=== PATIENT | male | born 1950 | race Caucasian/White ===

== ENCOUNTER 2019-10-01 09:18 | Emergency (ER) | payer MEDICARE, OTHER ==
[~2019-10-01] VITALS: Ht 177.8 cm; Wt 90.9 kg
--- NOTE | 2019-10-01 09:35 | NUR ---
TEO JACKSON AT BEDSIDE.
--- NOTE | 2019-10-01 09:42 | NUR ---
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
[2019-10-01 09:52] LABS: EOSINOPHILS # (AUTO) 0.1 X10'3 (0-0.9); HEMOGLOBIN 14.8 g/dl (14.0-17.9); MONOCYTES # (AUTO) 0.7 X10'3 (0-0.9); RED CELL DISTRIBUTION WIDTH 12.7 % (11.5-14.5); WHITE BLOOD COUNT 6.6 X10'3 (4.5-11.0)
[2019-10-01 09:54] LABS: BASOPHILS % (AUTO) 0.6 % (0-1); EOSINOPHILS % (AUTO) 1.3 % (0-6); HEMATOCRIT 44.1 % (42.0-52.0); LYMPHOCYTES # (AUTO) 1.7 X10'3 (1.1-4.8); LYMPHOCYTES % (AUTO) 25.6 % (21-51); MEAN CORPUSCULAR HEMOGLOBIN 31.4 PG (27.0-31.0); MEAN CORPUSCULAR HGB CONC 33.5 g/dL (33.0-36.5); MEAN CORPUSCULAR VOLUME 93.8 FL (78-98); MEAN PLATELET VOLUME 7.9 FL (7.4-10.4); MONOCYTES % (AUTO) 10.7 % (2-12); NEUTROPHILS # (AUTO) 4.1 X10'3 (1.8-7.7); NEUTROPHILS % (AUTO) 61.8 % (42-75); PLATELET COUNT 235 X10'3 (140-440)
[2019-10-01 10:14] LABS: ALANINE AMINOTRANSFERASE 46 U/L (12-78); ALBUMIN 3.9 G/DL (3.4-5.0); ALBUMIN/GLOBULIN RATIO 1.1 (1.1-1.5); ALKALINE PHOSPHATASE 82 IU/L (46-116); ANION GAP 5 (8-16); ASPARTATE AMINO TRANSFERASE 36 U/L (10-37); BILIRUBIN,TOTAL 0.6 MG/DL (0.1-1.0); BLOOD UREA NITROGEN 20 MG/DL (7-18); BUN/CREATININE RATIO 25.6 (5.4-32.0); CALCIUM 8.9 MG/DL (8.5-10.1); CHLORIDE 102 MMOL/L (99-107); CREATININE 0.78 MG/DL (0.60-1.10); GLUCOSE 106 MG/DL (70-104); POTASSIUM 3.8 MMOL/L (3.5-5.1); SODIUM 135 MMOL/L (135-145); TOTAL CARBON DIOXIDE 27.9 MMOL/L (24-32); TOTAL PROTEIN 7.6 G/DL (6.4-8.2); eGFR > 90 ML/MIN
--- NOTE | 2019-10-01 11:13 | NUR ---
FELIZ AT BEDSIDE.
[2019-10-01] MEDS ORDERED: LORazepam 2 mg/ml vial IV ONE (11:15)
--- NOTE | 2019-10-01 11:16 | NUR ---
verbal order received from Lily JACKSON to administer ativan 0.5mg iv x1.Order noted and carried out.
--- NOTE | 2019-10-01 11:30 | NUR ---
patient does not have family to transport him home,ativan cancelled by MD.
--- NOTE | 2019-10-01 12:11 | NUR ---
ultrasound at bedside
[2019-10-01 12:59] VITALS: BP 110/62
== END 2019-10-01 12:58 | disposition home or self-care (01) ==
LOC: ER 09:18
DX: R06.02 Shortness of breath (principal); I50.9 Heart failure, unspecified; I11.0 Hypertensive heart disease with heart failure
CPT/HCPCS: 36415; 71045; 80053; 84484; 85025; 93005; 99285

== ENCOUNTER 2022-03-31 11:51 | Observation (INO) | payer MEDICARE, OTHER ==
[~2022-03-31] VITALS: Ht 177.8 cm; Wt 98.7 kg
[2022-03-31] VITALS (9 sets, daily range): BP systolic 120–161; BP diastolic 60–94
[2022-03-31] MEDS ORDERED: cefazolin/dext.iso 2gm/100ml 100 ML IV ONE (12:20)
[2022-03-31] MEDS ORDERED: normal saline 1000ml 1,000 ML IV SCH (12:20)
[2022-03-31 12:55] LABS: BASOPHILS % (AUTO) 0.6 % (0-1); EOSINOPHILS # (AUTO) 0.1 X10'3 (0-0.9); EOSINOPHILS % (AUTO) 1.2 % (0-6); HEMATOCRIT 42.4 % (42.0-52.0); HEMOGLOBIN 14.2 g/dl (14.0-17.9); LYMPHOCYTES % (AUTO) 27.3 % (21-51); MEAN CORPUSCULAR HEMOGLOBIN 31.2 PG (27.0-31.0); MEAN CORPUSCULAR HGB CONC 33.6 g/dL (33.0-36.5); MEAN CORPUSCULAR VOLUME 92.9 FL (78-98); MEAN PLATELET VOLUME 7.7 FL (7.4-10.4); MONOCYTES # (AUTO) 0.7 X10'3 (0-0.9); MONOCYTES % (AUTO) 10.1 % (2-12); NEUTROPHILS # (AUTO) 4.4 X10'3 (1.8-7.7); NEUTROPHILS % (AUTO) 60.8 % (42-75); PLATELET COUNT 213 X10'3 (140-440); RED BLOOD COUNT 4.57 X10'6 (4.70-6.10); RED CELL DISTRIBUTION WIDTH 12.7 % (11.5-14.5); WHITE BLOOD COUNT 7.2 X10'3 (4.5-11.0)
[2022-03-31 13:06] LABS: ALBUMIN 3.8 G/DL (3.4-5.0); ANION GAP 7 (8-16); BLOOD UREA NITROGEN 16 MG/DL (7-18); BUN/CREATININE RATIO 23.2 (5.4-32.0); CHLORIDE 103 MMOL/L (99-107); CREATININE 0.69 MG/DL (0.60-1.10); GLUCOSE 95 MG/DL (70-104); MAGNESIUM 1.9 MG/DL (1.5-2.4); POTASSIUM 3.4 MMOL/L (3.5-5.1); SODIUM 137 MMOL/L (135-145); TOTAL CARBON DIOXIDE 26.9 MMOL/L (24-32); eGFR > 90 ML/MIN
[2022-03-31] MEDS ORDERED: ROSU10TA28 PO (13:10)
[2022-03-31] MEDS ORDERED: CHOL500049 PO (13:10)
[2022-03-31] MEDS ORDERED: CARV6.2553 PO (13:10)
[2022-03-31] MEDS ORDERED: TEMA30CA PO (13:10)
[2022-03-31] MEDS ORDERED: AMLO10TA13 PO (13:10)
[2022-03-31] MEDS ORDERED: PANT20TA18 PO (13:10)
[2022-03-31] MEDS ORDERED: LISI40TA13 PO (13:10)
[2022-03-31] MEDS ORDERED: CHLO25TA10 PO (13:10)
[2022-03-31] MEDS ORDERED: CETI-194 PO (13:10)
[2022-03-31] MEDS ORDERED: fentaNYL/PF 50MCG/1 ML 2ML syringe ONE ×2 (13:41→14:49)
[2022-03-31] MEDS ORDERED: LIDOCAINE 1%/EPI 1:100,000 inj. 10 ML multi-dose vial ONE ×2 (13:41→14:30)
[2022-03-31] MEDS ORDERED: midazolam 1 mg/ML 2ml injection ONE ×2 (13:41→14:49)
[2022-03-31] MEDS ORDERED: ceFAZolin 1000mg inj ONE (13:41)
[2022-03-31] MEDS ORDERED: HYDROcodone/acetaminophen 10/325mg tab PO PRN (16:05)
[2022-03-31] MEDS ORDERED: HYDROcodone/acetaminophen 5mg/325mg tablet PO PRN (16:05)
[2022-03-31] MEDS ORDERED: temazepam 15mg capsule PO PRN (16:25)
[2022-03-31] MEDS ORDERED: pantoprazole 40mg Tablet.DR PO PRN (16:25)
[2022-03-31] MEDS ORDERED: vancomycin/NS 1 GM ADD-VANTAGE 250 ML X 1 DOSE IV ONE (18:00)
--- NOTE | 2022-03-31 18:55 | NUR ---
gave ALICIA Rivera bedside report, all pt belongings trasferred with pt, VSS, pt's L anterior chest pressure DSG CDI, pt is in rm#[id number], in no distress at this time and in stable condition, pt is comfortable at this time and call light within reach.
[2022-03-31] MEDS ORDERED: atorvastatin 20mg tablet PO SCH (21:00)
[2022-03-31] MEDS: carvedilol 6.25mg tablet PO SCH (21:20)
[2022-04-01 02:00] VITALS: BP 124/68
--- NOTE | 2022-04-01 06:00 | NUR ---
Patient in room PCU 3024. I have received report from Nicole VARGAS and had the opportunity to ask questions and assume patient care.
[2022-04-01] MEDS ORDERED: amLODIPine 5mg tablet PO SCH (08:00)
[2022-04-01] MEDS ORDERED: cholecalciferol (vitamin D3) 1,000 unit (25mcg) tablet PO SCH (08:00)
[2022-04-01] MEDS ORDERED: cephalexin 500mg capsule PO SCH (08:00)
[2022-04-01] MEDS ORDERED: cetirizine 10mg tablet PO SCH (08:00)
[2022-04-01] MEDS ORDERED: chlorthalidone 25mg tablet PO SCH (08:00)
[2022-04-01] MEDS ORDERED: lisinopril 20mg tablet PO SCH (08:00)
[2022-04-01 08:09] VITALS: BP 126/68
[2022-04-01] MEDS: carvedilol 6.25mg tablet PO SCH (09:17)
[2022-04-01] MEDS ORDERED: CEPH-585 PO (09:41)
[2022-04-01 12:11] VITALS: BP 125/72
--- NOTE | 2022-04-01 14:40 | NUR ---
Patient stable for discharge per Dr. Bray. All discharge instructions reviewed with patient and all questions answered. Patient verbalized understanding. New prescriptions e-scripted to [facility]. PIV discontinued, cannula intact. Tele discontinued. All belongings collected and sent with patient. Wheeled to lobby via nursing staff and picked up by daughter.
== END 2022-04-01 12:05 | disposition home or self-care (01) ==
LOC: SSTAY O 11:51 → PCU 3S 18:19
PROVIDERS: ADMIT Internal Medicine Cardiovascular Disease; ATTEND Internal Medicine Cardiovascular Disease
DX: I49.5 Sick sinus syndrome (principal); I48.0 Paroxysmal atrial fibrillation; I12.9 Hypertensive chronic kidney disease with stage 1 through stage 4 chronic kidney disease, or unspecified chronic kidney disease; N18.1 Chronic kidney disease, stage 1; J45.909 Unspecified asthma, uncomplicated; K21.9 Gastro-esophageal reflux disease without esophagitis; Z95.0 Presence of cardiac pacemaker; Z79.899 Other long term (current) drug therapy
CPT/HCPCS: 33208; 36415; 71046; 80048; 83735; 85025; 85610; 93005; 96365; C1785; C1894; C1898; G0378; J0690; J2250; J3010; J3370; J3490; J7030; 99152; 99153; A4565; A4620; A6258; A6449

== ENCOUNTER 2022-08-13 07:46 | Day surgery (SDC) | payer MEDICARE, OTHER ==
[2022-08-12 11:05] LABS: APTT 27 SECONDS (22-32)
[2022-08-12 11:09] LABS: BASOPHILS % (AUTO) 0.6 % (0-1); EOSINOPHILS # (AUTO) 0.1 X10'3 (0-0.9); EOSINOPHILS % (AUTO) 1.5 % (0-6); HEMATOCRIT 44.9 % (42.0-52.0); HEMOGLOBIN 15.2 g/dl (14.0-17.9); LYMPHOCYTES # (AUTO) 1.6 X10'3 (1.1-4.8); LYMPHOCYTES % (AUTO) 27.3 % (21-51); MEAN CORPUSCULAR HGB CONC 33.9 g/dL (33.0-36.5); MEAN CORPUSCULAR VOLUME 91.4 FL (78-98); MEAN PLATELET VOLUME 8.3 FL (7.4-10.4); MONOCYTES # (AUTO) 0.6 X10'3 (0-0.9); MONOCYTES % (AUTO) 10.9 % (2-12); NEUTROPHILS # (AUTO) 3.4 X10'3 (1.8-7.7); NEUTROPHILS % (AUTO) 59.7 % (42-75); PLATELET COUNT 184 X10'3 (140-440); RED BLOOD COUNT 4.91 X10'6 (4.70-6.10); RED CELL DISTRIBUTION WIDTH 12.7 % (11.5-14.5); WHITE BLOOD COUNT 5.7 X10'3 (4.5-11.0)
[2022-08-12 11:10] LABS: ALBUMIN 4.1 G/DL (3.4-5.0); ANION GAP 5 (8-16); BLOOD UREA NITROGEN 19 MG/DL (7-18); BUN/CREATININE RATIO 23.5 (10.0-20.0); CHLORIDE 103 MMOL/L (99-107); CREATININE 0.81 MG/DL (0.60-1.10); GLUCOSE 108 MG/DL (70-104); POTASSIUM 3.7 MMOL/L (3.5-5.1); SODIUM 136 MMOL/L (135-145); TOTAL CARBON DIOXIDE 28.3 MMOL/L (24-32); eGFR > 90 ML/MIN
[2022-08-13] VITALS (13 sets, daily range): BP systolic 99–138; BP diastolic 43–82
[~2022-08-13] VITALS: Ht 177.8 cm; Wt 92.9 kg
[~2022-08-13 07:46] MED LIST: AMLO10TA13 PO; CARV6.2553 PO; CEPH-585 PO; CETI-194 PO; CHLO25TA10 PO; CHOL500049 PO; LISI40TA13 PO; PANT20TA18 PO; ROSU10TA28 PO; TEMA30CA PO
[2022-08-13] MEDS ORDERED: LORazepam 0.5 MG tablet PO PRN (08:00)
[2022-08-13] MEDS ORDERED: diphenhydrAMINE 25mg capsule PO PRN (08:00)
[2022-08-13] MEDS ORDERED: normal saline 1,000 ML IV SCH (08:00)
[2022-08-13] MEDS ORDERED: midazolam 1 mg/ML 2ml injection ONE (08:12)
[2022-08-13] MEDS ORDERED: nitroGLYCERIN-Tridil 50MG/D5W 250 ML IV ONE (08:12)
[2022-08-13] MEDS ORDERED: LIDOcaine 1% (10mg/ml) 2ml vial ONE (08:12)
[2022-08-13] MEDS ORDERED: fentaNYL/PF 50MCG/1 ML 2ML syringe ONE (08:12)
[2022-08-13] MEDS ORDERED: verapamil 2.5 mg/ml inj IV ONE (08:12)
[2022-08-13] MEDS ORDERED: heparin 1,000unit/ml 10ml vial 10 ML ONE (08:13)
[2022-08-13] MEDS ORDERED: iohexol 350MG/ML 100ml bottle IV ONE ×4 (08:13→10:32)
[2022-08-13] MEDS ORDERED: ASPI-1264 PO (08:36)
[2022-08-13] MEDS ORDERED: iohexol 350 MG/ML 50ML vial IV ONE (09:05)
[2022-08-13] MEDS ORDERED: heparin 25,000 UNIT/250ml bag 250 ML IV ONE (09:26)
[2022-08-13] MEDS ORDERED: clopidogrel 300mg tablet ONE (10:41)
--- NOTE | 2022-08-13 11:20 | NUR ---
Patient returned from public works laborer. Bedside report received from ALICIA Valero. Right radial stable with vasc band in place. No hematoma or bleeding noted.
[2022-08-13] MEDS ORDERED: HYDROcodone/acetaminophen 10/325mg tab PO PRN (11:30)
[2022-08-13] MEDS ORDERED: HYDROcodone/acetaminophen 5mg/325mg tablet PO PRN (11:30)
[2022-08-13] MEDS ORDERED: aspirin 325mg tablet, delayed-release (Ecotrin) PO ONE (11:50)
[2022-08-14] MEDS ORDERED: clopidogrel 75mg tablet PO SCH (08:00)
== END 2022-08-13 17:50 | disposition home or self-care (01) ==
LOC: SSTAY O 07:46
PROVIDERS: ATTEND Internal Medicine Cardiovascular Disease
DX: R94.39 Abnormal result of other cardiovascular function study (principal); I25.10 Atherosclerotic heart disease of native coronary artery without angina pectoris; Z79.01 Long term (current) use of anticoagulants; I10 Essential (primary) hypertension; E78.5 Hyperlipidemia, unspecified; G47.30 Sleep apnea, unspecified; I49.5 Sick sinus syndrome; I48.0 Paroxysmal atrial fibrillation; Z90.49 Acquired absence of other specified parts of digestive tract; G47.00 Insomnia, unspecified; Z98.890 Other specified postprocedural states; Z79.899 Other long term (current) drug therapy
CPT/HCPCS: 36415; 76937; 80048; 85025; 85347; 85610; 85730; 93005; 93458; 99152; 99153; A6258; C1725; C1751; C1769; C1874; C1894; C9600; J1644; J2250; J3010; J3490; J7030; Q0163; Q9967; A6402